=== PATIENT | female | born 1975 | race American Indian/Alaskan Native ===

== ENCOUNTER 2020-09-15 20:00 | Inpatient (IN) | payer OTHER ==
--- NOTE | 2020-09-15 20:35 | Emergency Department Report ---
Blank Doc - Documentation Documentation: 44-year-old female that presents with difficulty urinating with fever and chil ls. Tachycardia with fever in triage. 1- This initial assessment/diagnostic orders/clinical plan/ treatment(s) is/are subject to change based on pt's health status, clinical progression and re-asses sment by fellow clinical providers in the ED. Further treatment and workup at subsequent clinical provers discretion. Patient/guardians urged not to elope from ED as their condition may be serious if not clinically assessed and managed. 2-lac 3-UA
[2020-09-15 20:59] LABS: Hematocrit 34.1 % (30.3-42.9); Hemoglobin 10.7 gm/dl (10.1-14.3); Mean Corpuscular HGB Conc 32 % (30-34); Mean Corpuscular Volume 76 fl (79-97); Platelet Count 590 K/mm3 (140-440); Red Cell Distribution Width 19.1 % (13.2-15.2)
[2020-09-15] MEDS ORDERED: ACETAMINOPHEN 325 MG TAB PO ONE (21:08)
--- NOTE | 2020-09-15 21:12 | Emergency Department Report ---
HPI - General Chief Complaint: Urogenital-Female Time Seen by Provider: 09/15/20 20:32 - HPI HPI: This is a 44-year-old female who presents to the emergency department with the inability to urinate for the past 4 hours, since 5 PM. The patient says that she believes it is secondary to kidney stones. She says that she had multiple kidney stones about 1 year ago and it caused her to have urinary retention at that time. She follows with a urologist in [place], Dr. Angelita Willard, but she has not had any lithotripsy, stents or kidney stone removal. She has a past medical history of asthma, hypertension. The patient took a dose of Aleve yesterday for some mild lower abdominal discomfort. She denies any vaginal bleeding or discharge, dysuria, hematuria. The patient presents with a very low-grade fever but denies feeling feverish. ED Past Medical Hx - Past Medical History Previous Medical History?: Yes Hx Hypertension: Yes Hx Kidney Stones: Yes Hx Asthma: Yes - Surgical History Past Surgical History?: Yes Additional Surgical History: urinary tact blockage - Social History Smoking Status: Never Smoker Substance Use Type: None ED Review of Systems ROS: Stated complaint: UNABLE TO URINATE Other details as noted in HPI Comment: All other systems reviewed and negative Constitutional: fever. denies: chills Eyes: denies: eye pain, vision change ENT: denies: ear pain, throat pain Respiratory: denies: cough, shortness of breath Cardiovascular: denies: chest pain, palpitations Gastrointestinal: abdominal pain. denies: nausea, vomiting Genitourinary: other (urinary retention). denies: dysuria, discharge Musculoskeletal: denies: back pain, arthralgia Skin: denies: rash, lesions Neurological: denies: headache, weakness Physical Exam - Physical Exam Vital Signs: Vital Signs 09/15/20 20:31 Temperature 100.4 F H Pulse Rate 120 H Respiratory 16 Rate Blood Pressure 131/77 O2 Sat by Pulse 99 Oximetry Physical Exam: GENERAL: The patient is well-developed well-nourished. HENT: Normocephalic. Atraumatic. Patient has moist mucous membranes. EYES: Extraocular motions are intact. NECK: Supple. Trachea is midline. CHEST/LUNGS: Clear to auscultation. There is no respiratory distress noted. HEART/CARDIOVASCULAR: Regular. There is mild tachycardia. There is no murmur. ABDOMEN: Abdomen is soft, nontender. Patient has normal bowel sounds. Obese habitus. SKIN: Skin is warm and dry. NEURO: The patient is awake, alert, and oriented. The patient is cooperative. The patient has no focal neurologic deficits. Normal speech. MUSCULOSKELETAL: There is no tenderness or deformity. There is no limitation range of motion. BACK: No CVA tenderness to palpation. ED Course Vital Signs 09/15/20 20:31 Temperature 100.4 F H Pulse Rate 120 H Respiratory 16 Rate Blood Pressure 131/77 O2 Sat by Pulse 99 Oximetry - Reevaluation(s) Reevaluation #1: 09/15/20 22:[address] scan of the abdomen and pelvis shows 2 large stones in the right kidney and the calyces, but there is no ureterolithiasis, hydronephrosis, obvious bladder outlet obstruction or mass. There are some inflammatory changes around the right kidney that could be consistent with pyelonephritis. Waiting for the urinalysis results. A Alejandra catheter was placed but the patient only put out about 50 cc of urine so far. It seems more that the patient has decreased urine output than acute urinary retention. The patient will receive IV antibiotics and IV fluid resuscitation. She will be admitted to the hospital for further evaluation and treatment. - EJ/Peripheral Line Arm R Time Out Performed: Yes Indications: nurses unable to establis Skin Cleansed in Sterile Fashion: Yes Size: 20 Dressing Placed: Tegaderm, tape Patient Tolerated Procedure: well - Pulse Oximetry Interpretation Digit-Finger Initial Pulse Oximetry Readin O2 Sat by Pulse Oximetry: 99 Actions Taken: none ED Medical Decision Making - Lab Data Result diagrams: 09/15/20 20:37 09/15/20 20:37 Lab Results 09/15/20 09/15/20 09/15/20 Range/Units 20:37 20:37 20:37 WBC 29.5 H (4.5-11.0) K/mm3 RBC 4.50 (3.65-5.03) M/mm3 Hgb 10.7 (10.1-14.3) gm/dl Hct 34.1 (30.3-42.9) % MCV 76 L (79-97) fl MCH 24 L (28-32) pg MCHC 32 (30-34) % RDW 19.1 H (13.2-15.2) % Plt Count 590 H (140-440) K/mm3 Add Manual Diff Complete Total Counted 100 Seg Neutrophils % County Attorney Seg Neuts % (Manual) 93.0 H (40.0-70.0) % Lymphocytes % (Manual) 4.0 L (13.4-35.0) % Monocytes % (Manual) 3.0 (0.0-7.3) % Nucleated RBC % Not Reportable Seg Neutrophils # Man 27.4 H (1.8-7.7) K/mm3 Band Neutrophils # 0.0 K/mm3 Lymphocytes # (Manual) 1.2 (1.2-5.4) K/mm3 Abs React Lymphs (Man) 0.0 K/mm3 Monocytes # (Manual) 0.9 H (0.0-0.8) K/mm3 Eosinophils # (Manual) 0.0 (0.0-0.4) K/mm3 Basophils # (Manual) 0.0 (0.0-0.1) K/mm3 Metamyelocytes # 0.0 K/mm3 Myelocytes # 0.0 K/mm3 Promyelocytes # 0.0 K/mm3 Blast Cells # 0.0 K/mm3 WBC Morphology Not Reportable Hypersegmented Neuts Not Reportable Hyposegmented Neuts Not Reportable Hypogranular Neuts Not Reportable Smudge Cells Not Reportable Toxic Granulation Not Reportable Toxic Vacuolation Not Reportable Dohle Bodies Not Reportable Pelger-Huet Anomaly Not Reportable Fany Rods Not Reportable Platelet Estimate Consistent w auto Clumped Platelets Not Reportable Plt Clumps, EDTA Not Reportable Large Platelets Not Reportable Giant Platelets Not Reportable Platelet Satelliting Not Reportable Plt Morphology Comment Not Reportable RBC Morphology Not Reportable Dimorphic RBCs Not Reportable Polychromasia Not Reportable Hypochromasia Rare Poikilocytosis Not Reportable Anisocytosis Not Reportable Microcytosis Not Reportable Macrocytosis Not Reportable Spherocytes Not Reportable Pappenheimer Bodies Not Reportable Sickle Cells Not Reportable Target Cells Not Reportable Tear Drop Cells Not Reportable Ovalocytes Rare Helmet Cells Not Reportable Yap-Ravena Bodies Not Reportable Constantine Rings Not Reportable Muldrow Cells Not Reportable Bite Cells Not Reportable Crenated Cell Not Reportable Elliptocytes Not Reportable Acanthocytes (Spur) Not Reportable Rouleaux Not Reportable Hemoglobin C Crystals Not Reportable Schistocytes Not Reportable Malaria parasites Not Reportable Eitan Bodies Not Reportable Hem Pathologist Commnt No Sodium 136 L (137-145) mmol/L Potassium 3.3 L (3.6-5.0) mmol/L Chloride 100.3 (98-107) mmol/L Carbon Dioxide 25 (22-30) mmol/L Anion Gap 14 mmol/L BUN 10 (7-17) mg/dL Creatinine 1.2 (0.6-1.2) mg/dL Estimated GFR 59 ml/min BUN/Creatinine Ratio 8 % Glucose 127 H (65-100) mg/dL Lactic Acid 1.30 (0.7-2.0) mmol/L Calcium 9.0 (8.4-10.2) mg/dL Total Bilirubin 0.60 (0.1-1.2) mg/dL AST 12 (5-40) units/L ALT 8 (7-56) units/L Alkaline Phosphatase 71 (35-129) units/L Total Protein 7.6 (6.3-8.2) g/dL Albumin 3.2 L (3.9-5) g/dL Albumin/Globulin Ratio 0.7 % HCG, Qual (Negative) Urine Color (Yellow) Urine Turbidity (Clear) Urine pH (5.0-7.0) Ur Specific [place] (1.003-1.030) Urine Protein (Negative) mg/dL Urine Glucose (UA) (Negative) mg/dL Urine Ketones (Negative) mg/dL Urine Blood (Negative) Urine Nitrite (Negative) Urine Bilirubin (Negative) Urine Urobilinogen (<2.0) mg/dL Ur Leukocyte Esterase (Negative) Urine WBC (Auto) (0.0-6.0) /HPF Urine RBC (Auto) (0.0-6.0) /HPF U Epithel Cells (Auto) (0-13.0) /HPF Urine Bacteria (Auto) (Negative) /HPF Urine WBC Clumps /HPF Urine Mucus /HPF 09/15/20 09/15/20 Range/Units 20:37 22:00 WBC (4.5-11.0) K/mm3 RBC (3.65-5.03) M/mm3 Hgb (10.1-14.3) gm/dl Hct (30.3-42.9) % MCV (79-97) fl MCH (28-32) pg MCHC (30-34) % RDW (13.2-15.2) % Plt Count (140-440) K/mm3 Add Manual Diff Total Counted Seg Neutrophils % Seg Neuts % (Manual) (40.0-70.0) % Lymphocytes % (Manual) (13.4-35.0) % Monocytes % (Manual) (0.0-7.3) % Nucleated RBC % Seg Neutrophils # Man (1.8-7.7) K/mm3 Band Neutrophils # K/mm3 Lymphocytes # (Manual) (1.2-5.4) K/mm3 Abs React Lymphs (Man) K/mm3 Monocytes # (Manual) (0.0-0.8) K/mm3 Eosinophils # (Manual) (0.0-0.4) K/mm3 Basophils # (Manual) (0.0-0.1) K/mm3 Metamyelocytes # K/mm3 Myelocytes # K/mm3 Promyelocytes # K/mm3 Blast Cells # K/mm3 WBC Morphology Hypersegmented Neuts Hyposegmented Neuts Hypogranular Neuts Smudge Cells Toxic Granulation Toxic Vacuolation Dohle Bodies Pelger-Huet Anomaly Fany Rods Platelet Estimate Clumped Platelets Plt Clumps, EDTA Large Platelets Giant Platelets Platelet Satelliting Plt Morphology Comment RBC Morphology Dimorphic RBCs Polychromasia Hypochromasia Poikilocytosis Anisocytosis Microcytosis Macrocytosis Spherocytes Pappenheimer Bodies Sickle Cells Target Cells Tear Drop Cells Ovalocytes Helmet Cells Yap-Ravena Bodies Constantine Rings Mohan Cells Bite Cells Crenated Cell Elliptocytes Acanthocytes (Spur) Rouleaux Hemoglobin C Crystals Schistocytes Malaria parasites Eitan Bodies Hem Pathologist Commnt Sodium (137-145) mmol/L Potassium (3.6-5.0) mmol/L Chloride (98-107) mmol/L Carbon Dioxide (22-30) mmol/L Anion Gap mmol/L BUN (7-17) mg/dL Creatinine (0.6-1.2) mg/dL Estimated GFR ml/min BUN/Creatinine Ratio % Glucose (65-100) mg/dL Lactic Acid (0.7-2.0) mmol/L Calcium (8.4-10.2) mg/dL Total Bilirubin (0.1-1.2) mg/dL AST (5-40) units/L ALT (7-56) units/L Alkaline Phosphatase (35-129) units/L Total Protein (6.3-8.2) g/dL Albumin (3.9-5) g/dL Albumin/Globulin Ratio % HCG, Qual Negative (Negative) Urine Color Yellow (Yellow) Urine Turbidity Cloudy (Clear) Urine pH 5.0 (5.0-7.0) Ur Specific [place] 1.015 (1.003-1.030) Urine Protein 100 mg/dl (Negative) mg/dL Urine Glucose (UA) Neg (Negative) mg/dL Urine Ketones Tr (Negative) mg/dL Urine Blood Sm (Negative) Urine Nitrite Pos (Negative) Urine Bilirubin Neg (Negative) Urine Urobilinogen < 2.0 (<2.0) mg/dL Ur Leukocyte Esterase Lg (Negative) Urine WBC (Auto) > 182.0 H (0.0-6.0) /HPF Urine RBC (Auto) 21.0 (0.0-6.0) /HPF U Epithel Cells (Auto) 1.0 (0-13.0) /HPF Urine Bacteria (Auto) 2+ (Negative) /HPF Urine WBC Clumps 3+ /HPF Urine Mucus 1+ /HPF - Radiology Data Radiology results: report reviewed CT ABDOMEN AND PELVIS WITHOUT CONTRAST INDICATION / CLINICAL INFORMATION: Abd pain, Urinary retention, hx of kidney stones. TECHNIQUE: Axial CT images were obtained through the abdomen and pelvis without IV contrast. All CT scans at this location are performed using CT dose reduction for ALARA by means of automated exposure control. COMPARISON: None available. FINDINGS: LOWER CHEST: No significant abnormality. LIVER: No significant abnormality. GALLBLADDER: No significant abnormality. PANCREAS: No significant abnormality. SPLEEN: No significant abnormality. ADRENALS: No significant abnormality. KIDNEYS / URETERS: There are 2 right-sided calyceal stones measuring 1.5 and 1.3 cm. No definite right ureteral stone is identified. There is no definite obstructive uropathy. However, there is some right-sided perinephric fat stranding which is nonspecific. The left kidney appears somewhat atrophic. There is scarring within the lower pole of the left kidney with calcifications noted. There is prominence of the upper pole calyces without evidence of obstructive uropathy. No ureteral stone is identified. URINARY BLADDER: No significant abnormality. REPRODUCTIVE ORGANS: No significant abnormality. STOMACH / SMALL BOWEL: No significant abnormality. COLON: No significant abnormality. The cecum is located near the midline. APPENDIX: No significant abnormality. PERITONEUM: No free fluid. No free air. No fluid collection. LYMPH NODES: No significant adenopathy. AORTA / ARTERIES: No significant abnormality. IVC / VEINS: No significant abnormality. SKELETAL SYSTEM: No significant abnormality. ADDITIONAL FINDINGS: None. IMPRESSION: 1. There are two sizable right-sided calyceal stones without ureterolithiasis or definite obstructive uropathy. There is mild to moderate right-sided perinephric fat stranding which is nonspecific but could represent pyelonephritis in the right clinical setting. Correlation with urinalysis is recommended. 2. The left kidney appears somewhat atrophic with inferior pole scarring and calcification. No left-sided ureterolithiasis. - Medical Decision Making This patient presents to the emergency department with the initial complaint of urinary retention as she says she has not urinated for the past 4 hours prior to presentation. However the patient denies having any current abdominal or suprapubic pressure or discomfort. On examination the patient does not have any CVA tenderness to palpation. She does meet sepsis criteria with her vital signs that shows a low-grade fever of 100.4 F and moderate tachycardia. The patient's labs shows a leukocytosis of almost 30,000. There is mild hypokalemia that was placed with potassium chloride. No significant renal insufficiency. The patient went and had a CT scan of the abdomen and pelvis prior to having a catheter placed. The CT scan of the abdomen pelvis did not show any bladder distention or abnormalities, or signs of urinary retention. There are 2 large calculi found in the right renal calyces but there is no obstructive uropathy or any ureterolithiasis seen. No hydronephrosis. There is some inflammatory changes around the right kidney that could be consistent with pyelonephritis. The Alejandra catheter was placed but the patient only put out about 75 cc of urine which is more consistent with decreased urine output than any type of urinary retention. The urine was sent and the patient has a significant urinary tract infection. Altogether this appears consistent with sepsis secondary to pyelonephritis and UTI. The patient has been given IV antibiotics after cultures have been sent. She has been given IV fluid resuscitation. She was given some Tylenol for her low- grade fever. The patient will be admitted to the hospital for further evaluation and treatment and was accepted for admission by the hospitalist, Dr. Serrano. Critical Care Time: Yes Critical care time in (mins) excluding proc time.: 35 Critical care attestation.: If time is entered above; I have spent that time in minutes in the direct care of this critically ill patient, excluding procedure time. Critical care time was spent on this patient in doing her initial evaluation, multiple reevaluations, ordering and interpretation of labs and imaging, antipyretics and IV fluid resuscitation and treating her fever and sepsis, IV antibiotics, multiple discussions with the patient. Critical Care Time: 35 minutes ED Disposition Clinical Impression: Pyelonephritis Sepsis Qualifiers: Sepsis type: sepsis due to unspecified organism Sepsis acute organ dysfunction status: unspecified Qualified Code(s): A41.9 - Sepsis, unspecified organism UTI (urinary tract infection) Qualifiers: Urinary tract infection type: acute cystitis Hematuria presence: without hematuria Qualified Code(s): N30.00 - Acute cystitis without hematuria Leukocytosis Qualifiers: Leukocytosis type: unspecified Qualified Code(s): D72.829 - Elevated white blood cell count, unspecified Disposition: 09 OP ADMIT IP TO THIS HOSP Is pt being admited?: Yes Condition: Serious Time of Disposition: 22:46
[2020-09-15 21:18] LABS: Albumin 3.2 g/dL (3.9-5)
[2020-09-15] MEDS ORDERED: POTASSIUM CHLORIDE ER 20 MEQ TAB PO ONE (21:22)
[2020-09-15 22:09] LABS: Total Cells Counted 100
--- NOTE | 2020-09-15 22:10 | Cat Scan Report ---
CT ABDOMEN AND PELVIS WITHOUT CONTRAST INDICATION / CLINICAL INFORMATION: Abd pain, Urinary retention, hx of kidney stones. TECHNIQUE: Axial CT images were obtained through the abdomen and pelvis without IV contrast. All CT scans at [facility] location are performed using CT dose reduction for ALARA by means of automated exposure control. COMPARISON: None available. FINDINGS: LOWER CHEST: No significant abnormality. LIVER: No significant abnormality. GALLBLADDER: No significant abnormality. PANCREAS: No significant abnormality. SPLEEN: No significant abnormality. ADRENALS: No significant abnormality. KIDNEYS / URETERS: There are 2 right-sided calyceal stones measuring 1.5 and 1.3 cm. No definite righ t ureteral stone is identified. There is no definite obstructive uropathy. However, there is some rig ht-sided perinephric fat stranding which is nonspecific. The left kidney appears somewhat atrophic. T here is scarring within the lower pole of the left kidney with calcifications noted. There is promine nce of the upper pole calyces without evidence of obstructive uropathy. No ureteral stone is identifi ed. URINARY BLADDER: No significant abnormality. REPRODUCTIVE ORGANS: No significant abnormality. STOMACH / SMALL BOWEL: No significant abnormality. COLON: No significant abnormality. The cecum is located near the midline. APPENDIX: No significant abnormality. PERITONEUM: No free fluid. No free air. No fluid collection. LYMPH NODES: No significant adenopathy. AORTA / ARTERIES: No significant abnormality. IVC / VEINS: No significant abnormality. SKELETAL SYSTEM: No significant abnormality. ADDITIONAL FINDINGS: None. IMPRESSION: 1. There are two sizable right-sided calyceal stones without ureterolithiasis or definite obstructive uropathy. There is mild to moderate right-sided perinephric fat stranding which is nonspecific but c ould represent pyelonephritis in the right clinical setting. Correlation with urinalysis is recommend ed. 2. The left kidney appears somewhat atrophic with inferior pole scarring and calcification. No left-s ided ureterolithiasis. Signer Name: Fer Padgett MD Signed: 09/15/2020 10:06 PM Workstation Name: [id number]
[2020-09-15 22:11] LABS: Hypochromasia Rare; Ovalocytes Rare; Platelet Estimate Consistent w Auto
[2020-09-15] MEDS ORDERED: SODIUM CHLORIDE 0.9% 1000 ML 1,000 ML IV ONE (22:14)
[2020-09-15 22:18] LABS: Bacteria,Urine 2+ /HPF (Negative); Bilirubin,Urine NEG (Negative); Blood,Urine SM (Negative); Color,Urine Yellow (Yellow); Mucus,Urine 1+ /HPF; Urobilinogen,Urine < 2.0 mg/dL (<2.0)
[2020-09-15 22:19] LABS: WBC,Urine > 182.0 /HPF (0.0-6.0)
[2020-09-15] MEDS ORDERED: cefTRIAXone/NS 1 GM/50 ML 1 GM/50 ML BAG IV ONE (22:45)
[2020-09-15] MEDS ORDERED: ONDANSETRON 4 MG/2 ML INJ IV PRN (23:21)
[2020-09-15] MEDS ORDERED: ACETAMINOPHEN 325 MG TAB PO PRN (23:21)
[2020-09-15] MEDS ORDERED: MORPHINE 2 MG/1 ML INJ IV PRN (23:21)
[2020-09-15] MEDS ORDERED: MAGNESIUM HYDROXIDE (MOM) ORAL LIQD UDC PO PRN (23:21)
--- NOTE | 2020-09-15 23:29 | History and Physical Report ---
History of Present Illness Date of examination: 09/15/20 Date of admission: 09/15/20 22:47 Chief complaint: Abdominal Pain History of present illness: 44-year-old -[place] female with significant past medical history of hypertension , asthma and kidney stones presenting to the emergency room today complaining of inability to urinate over the past few hours. Patient has denied any fever or chills, no chest pain or shortness of breath, no nausea vomiting, no hematuria or dysuria. Patient follows up with the urologist in [place]-Dr. Angelita Willard. Upon arrival in the emergency room today she had a low-grade fever. Work-up reveals UTI and CT of the abdomen and pelvis reveals pyelonephritis. Patient has been commenced on empiric IV antibiotics. Past History Past Medical History: hypertension, other (Asthma, Kidney Stones) Past Surgical History: Other (Urinary tract Blockage.) Social history: no significant social history Family history: no significant family history Medications and Allergies Allergies Allergy/AdvReac Type Severity Reaction Status Date / Time Sulfa (Sulfonamide Allergy Itching Verified 09/15/20 20:29 Antibiotics) Home Medications Medication Instructions Recorded Confirmed Last Taken Type Albuterol Mdi (or & Nicu Only) 8.5 g INHALATION DAILY PRN 09/16/20 09/16/20 Unknown History [ProAir HFA Inhaler] Amlodipine Besylate/Valsartan 1 tab PO DAILY 09/16/20 09/16/20 09/15/20 History [Amlodipine-Valsartan 10-320 mg] Active Meds: Active Medications Acetaminophen (Acetaminophen 325 Mg Tab) 650 mg PO Q4H PRN PRN Reason: Pain MILD(1-3)/Fever >100.5/AMEZCUA Heparin Sodium (Porcine) (Heparin 5,000 Unit/1 Ml Vial) 5,000 unit SUB-Q Q8HR ABHILASH Ceftriaxone Sodium (Rocephin/Ns 1 Gm/50 Ml) 1 gm in 50 mls @ 100 mls/hr IV Q24H ABHILASH; Protocol Magnesium Hydroxide (Magnesium Hydroxide (Mom) Oral Liqd Udc) 30 ml PO Q4H PRN PRN Reason: Constipation Morphine Sulfate (Morphine 2 Mg/1 Ml Inj) 2 mg IV Q4H PRN PRN Reason: Pain, Moderate (4-6) Ondansetron HCl (Ondansetron 4 Mg/2 Ml Inj) 4 mg IV Q8H PRN PRN Reason: Nausea And Vomiting Sodium Chloride (Sodium Chloride 0.9% 10 Ml Flush Syringe) 10 ml IV BID ABHILASH Sodium Chloride (Sodium Chloride 0.9% 10 Ml Flush Syringe) 10 ml IV PRN PRN PRN Reason: LINE FLUSH Review of Systems Constitutional: fever, no chills, no fatigue Ears, nose, mouth and throat: no nasal congestion, no sore throat Cardiovascular: no chest pain, no palpitations Respiratory: no cough, no shortness of breath Gastrointestinal: abdominal pain, no nausea, no vomiting, no diarrhea Genitourinary Female: no pelvic pain, no flank pain, no dysuria, no hematuria Musculoskeletal: no neck pain, no low back pain Integumentary: no rash, no pruritis Neurological: no headaches, no confusion Psychiatric: no anxiety, no depression Exam - Constitutional Vitals: Temp Pulse Resp BP Pulse Ox 98.2 F 100 H 31 H 108/57 99 09/15/20 23:00 09/15/20 23:00 09/15/20 23:00 09/15/20 23:00 09/15/20 23:17 General appearance: Present: no acute distress, well-nourished, obese - EENT Eyes: Present: PERRL, EOM intact. Absent: scleral icterus ENT: hearing intact, clear oral mucosa, dentition normal - Neck Neck: Present: supple, normal ROM - Respiratory Respiratory effort: normal Respiratory: bilateral: CTA - Cardiovascular Rhythm: regular Heart Sounds: Present: S1 & S2. Absent: gallop, systolic murmur, diastolic murmur, rub, click - Extremities Extremities: no ischemia, pulses intact, pulses symmetrical, No edema, normal temperature, normal color, Full ROM Peripheral Pulses: within normal limits - Abdominal General gastrointestinal: Present: soft, non-tender, non-distended, normal bowel sounds. Absent: mass - Integumentary Integumentary: Present: clear, warm, dry. Absent: rash - Musculoskeletal Musculoskeletal: strength equal bilaterally - Psychiatric Psychiatric: appropriate mood/affect, intact judgment & insight, memory intact, cooperative - Neurologic Neurologic: CNII-XII intact, no focal deficits, moves all extremities Results - Labs CBC & Chem 7: 09/15/20 20:37 09/15/20 20:37 Labs: Abnormal lab results 09/15/20 09/15/20 09/15/20 Range/Units 20:37 20:37 22:00 WBC 29.5 H (4.5-11.0) K/mm3 MCV 76 L (79-97) fl MCH 24 L (28-32) pg RDW 19.1 H (13.2-15.2) % Plt Count 590 H (140-440) K/mm3 Seg Neuts % (Manual) 93.0 H (40.0-70.0) % Lymphocytes % (Manual) 4.0 L (13.4-35.0) % Seg Neutrophils # Man 27.4 H (1.8-7.7) K/mm3 Monocytes # (Manual) 0.9 H (0.0-0.8) K/mm3 Sodium 136 L (137-145) mmol/L Potassium 3.3 L (3.6-5.0) mmol/L Glucose 127 H (65-100) mg/dL Albumin 3.2 L (3.9-5) g/dL Urine WBC (Auto) > 182.0 H (0.0-6.0) /HPF Assessment and Plan - Patient Problems (1) Pyelonephritis Current Visit: Yes Status: Acute Plan to address problem: Patient placed on empiric IV antibiotics. We will await culture results. (2) Leukocytosis Current Visit: Yes Status: Acute Qualifiers: Leukocytosis type: unspecified (3) Sepsis Current Visit: Yes Status: Acute Qualifiers: Sepsis type: sepsis due to unspecified organism Sepsis acute organ dysfunction status: unspecified Qualified Code(s): A41.9 - Sepsis, unspecified organism Plan to address problem: We will continue patient on IV fluid and IV antibiotics. (4) DVT prophylaxis Current Visit: Yes Status: Acute Plan to address problem: Patient placed on subcutaneous heparin. (5) Full code status Current Visit: Yes Status: Acute Plan to address problem: Patient is full code.
[2020-09-16 05:11] LABS: Hematocrit 29.4 % (30.3-42.9); Hemoglobin 9.3 gm/dl (10.1-14.3); Mean Corpuscular HGB Conc 32 % (30-34); Mean Corpuscular Volume 75 fl (79-97); Platelet Count 486 K/mm3 (140-440); Red Blood Count 3.89 M/mm3 (3.65-5.03); Red Cell Distribution Width 18.7 % (13.2-15.2)
[2020-09-16 05:14] LABS: Basophils % (Auto) 0.1 % (0.0-1.8); Lymphocytes # (Auto) 1.1 K/mm3 (1.2-5.4); Lymphocytes % (Auto) 4.1 % (13.4-35.0); Monocytes # (Auto) 1.6 K/mm3 (0.0-0.8); Monocytes % (Auto) 5.9 % (0.0-7.3)
[2020-09-16 05:23] LABS: INR 1.52 (0.87-1.13)
[2020-09-16 05:28] LABS: Calcium 8.5 mg/dL (8.4-10.2)
[2020-09-16] MEDS: HEPARIN 5,000 UNIT/1 ML VIAL SUB-Q SCH ×3 (06:59→22:45)
[2020-09-16] MEDS: SODIUM CHLORIDE 0.9% 1000 ML 1,000 ML IV SCH (07:00)
--- NOTE | 2020-09-16 08:57 | Progress Note ---
Assessment and Plan Assessment and plan: 44-year-old -[place] female with significant past medical history of hypertension , asthma and kidney stones presenting to the emergency room today complaining of inability to urinate over the past few hours. Patient has denied any fever or chills, no chest pain or shortness of breath, no nausea vomiting, no hematuria or dysuria. Patient follows up with the urologist in [place]-Dr. Angelita Willard. Upon arrival in the emergency room today she had a low-grade fever. Work-up reveals UTI and CT of the abdomen and pelvis reveals pyelonephritis. Patient has been commenced on empiric IV antibiotics. Hospital course 3/2. On IV antibiotics for pyelonephritis with sepsis. Denies any pain in the abdomen or the back. Complains of not been able to urinate. Vitals remained stable overnight. T-max 100 Fahrenheit. Problems #Sepsis secondary to pyelonephritis Continue IV antibiotics Culture results-blood and urine pending Continue IV hydration #HANS 2/2 vasomotor nephropathy. Has decreased urinary output Labs stable Bladder scan revealed no urinary retention Continue IV hydration and monitor #History of kidney stones CT showed no obstructing kidney stones Urology in the office advised #Morbid obesity Diet and exercise #DVT prophylaxis-Heparin Full code History Interval history: 3/2. On IV antibiotics for pyelonephritis with sepsis. Denies any pain in the abdomen or the back. Complains of not been able to urinate. Vitals remained stable overnight. T-max 100 Fahrenheit Hospitalist Physical - Physical exam Narrative exam: VITAL SIGNS: Reviewed. GENERAL: Awake HEAD: No signs of head trauma. EYES: Pupils are equal. Extraocular motions intact. MOUTH: Oropharynx is normal. NECK: No adenopathy, no JVD. CHEST: Chest with diminished breath sounds bilaterally. No wheezes, rales, or rhonchi. CARDIAC: normal S1 and S2, without murmurs, gallops, or rubs. ABDOMEN: Soft, non tender and non distended. No rebound or guarding, and no masses palpated. Bowel Sounds normal. MUSCULOSKELETAL: No edema NEUROLOGIC EXAM: Alert and oriented x3. No focal neurologic deficits SKIN: No obvious lesions - Constitutional Vitals: Temp Pulse Resp BP Pulse Ox 98.0 F 98 H 18 113/68 98 09/16/20 08:51 09/16/20 08:51 09/16/20 08:51 09/16/20 08:51 09/16/20 08:51 Results - Labs CBC & Chem 7: 09/17/20 04:55 09/17/20 04:55 Labs: Laboratory Last Values WBC 26.6 K/mm3 (4.5-11.0) H 09/16/20 03:34 RBC 3.89 M/mm3 (3.65-5.03) 09/16/20 03:34 Hgb 9.3 gm/dl (10.1-14.3) L 09/16/20 03:34 Hct 29.4 % (30.3-42.9) L 09/16/20 03:34 MCV 75 fl (79-97) L 09/16/20 03:34 MCH 24 pg (28-32) L 09/16/20 03:34 MCHC 32 % (30-34) 09/16/20 03:34 RDW 18.7 % (13.2-15.2) H 09/16/20 03:34 Plt Count 486 K/mm3 (140-440) H 09/16/20 03:34 Lymph % (Auto) 4.1 % (13.4-35.0) L 09/16/20 03:34 [place] % (Auto) 5.9 % (0.0-7.3) 09/16/20 03:34 Eos % (Auto) 0.0 % (0.0-4.3) 09/16/20 03:34 Baso % (Auto) 0.1 % (0.0-1.8) 09/16/20 03:34 Lymph # (Auto) 1.1 K/mm3 (1.2-5.4) L 09/16/20 03:34 [place] # (Auto) 1.6 K/mm3 (0.0-0.8) H 09/16/20 03:34 Eos # (Auto) 0.0 K/mm3 (0.0-0.4) 09/16/20 03:34 Baso # (Auto) 0.0 K/mm3 (0.0-0.1) 09/16/20 03:34 Add Manual Diff Complete 09/15/20 20:37 Total Counted 100 09/15/20 20:37 Seg Neutrophils % 89.9 % (40.0-70.0) H 09/16/20 03:34 Seg Neuts % (Manual) 93.0 % (40.0-70.0) H 09/15/20 20:37 Lymphocytes % (Manual) 4.0 % (13.4-35.0) L 09/15/20 20:37 Monocytes % (Manual) 3.0 % (0.0-7.3) 09/15/20 20:37 Nucleated RBC % Not Reportable 09/15/20 20:37 Seg Neutrophils # 23.9 K/mm3 (1.8-7.7) H 09/16/20 03:34 Seg Neutrophils # Man 27.4 K/mm3 (1.8-7.7) H 09/15/20 20:37 Band Neutrophils # 0.0 K/mm3 09/15/20 20:37 Lymphocytes # (Manual) 1.2 K/mm3 (1.2-5.4) 09/15/20 20:37 Abs React Lymphs (Man) 0.0 K/mm3 09/15/20 20:37 Monocytes # (Manual) 0.9 K/mm3 (0.0-0.8) H 09/15/20 20:37 Eosinophils # (Manual) 0.0 K/mm3 (0.0-0.4) 09/15/20 20:37 Basophils # (Manual) 0.0 K/mm3 (0.0-0.1) 09/15/20 20:37 Metamyelocytes # 0.0 K/mm3 09/15/20 20:37 Myelocytes # 0.0 K/mm3 09/15/20 20:37 Promyelocytes # 0.0 K/mm3 09/15/20 20:37 Blast Cells # 0.0 K/mm3 09/15/20 20:37 WBC Morphology Not Reportable 09/15/20 20:37 Hypersegmented Neuts Not Reportable 09/15/20 20:37 Hyposegmented Neuts Not Reportable 09/15/20 20:37 Hypogranular Neuts Not Reportable 09/15/20 20:37 Smudge Cells Not Reportable 09/15/20 20:37 Toxic Granulation Not Reportable 09/15/20 20:37 Toxic Vacuolation Not Reportable 09/15/20 20:37 Dohle Bodies Not Reportable 09/15/20 20:37 Pelger-Huet Anomaly Not Reportable 09/15/20 20:37 Fany Rods Not Reportable 09/15/20 20:37 Platelet Estimate Consistent w auto 09/15/20 20:37 Clumped Platelets Not Reportable 09/15/20 20:37 Plt Clumps, EDTA Not Reportable 09/15/20 20:37 Large Platelets Not Reportable 09/15/20 20:37 Giant Platelets Not Reportable 09/15/20 20:37 Platelet Satelliting Not Reportable 09/15/20 20:37 Plt Morphology Comment Not Reportable 09/15/20 20:37 RBC Morphology Not Reportable 09/15/20 20:37 Dimorphic RBCs Not Reportable 09/15/20 20:37 Polychromasia Not Reportable 09/15/20 20:37 Hypochromasia Rare 09/15/20 20:37 Poikilocytosis Not Reportable 09/15/20 20:37 Anisocytosis Not Reportable 09/15/20 20:37 Microcytosis Not Reportable 09/15/20 20:37 Macrocytosis Not Reportable 09/15/20 20:37 Spherocytes Not Reportable 09/15/20 20:37 Pappenheimer Bodies Not Reportable 09/15/20 20:37 Sickle Cells Not Reportable 09/15/20 20:37 Target Cells Not Reportable 09/15/20 20:37 Tear Drop Cells Not Reportable 09/15/20 20:37 Ovalocytes Rare 09/15/20 20:37 Helmet Cells Not Reportable 09/15/20 20:37 [place] Bodies Not Reportable 09/15/20 20:37 [place] Rings Not Reportable 09/15/20 20:37 [place] Cells Not Reportable 09/15/20 20:37 Bite Cells Not Reportable 09/15/20 20:37 Crenated Cell Not Reportable 09/15/20 20:37 Elliptocytes Not Reportable 09/15/20 20:37 Acanthocytes (Spur) Not Reportable 09/15/20 20:37 Rouleaux Not Reportable 09/15/20 20:37 Hemoglobin C Crystals Not Reportable 09/15/20 20:37 Schistocytes Not Reportable 09/15/20 20:37 Malaria parasites Not Reportable 09/15/20 20:37 Eitan Bodies Not Reportable 09/15/20 20:37 Hem Pathologist Commnt No 09/15/20 20:37 PT 18.3 Sec. (12.2-14.9) H 09/16/20 03:34 INR 1.52 (0.87-1.13) H 09/16/20 03:34 Sodium 136 mmol/L (137-145) L 09/16/20 03:34 Potassium 3.0 mmol/L (3.6-5.0) L 09/16/20 03:34 Chloride 101.4 mmol/L (98-107) 09/16/20 03:34 Carbon Dioxide 25 mmol/L (22-30) 09/16/20 03:34 Anion Gap 13 mmol/L 09/16/20 03:34 BUN 14 mg/dL (7-17) 09/16/20 03:34 Creatinine 1.5 mg/dL (0.6-1.2) H 09/16/20 03:34 Estimated GFR 45 ml/min 09/16/20 03:34 BUN/Creatinine Ratio 9 % 09/16/20 03:34 Glucose 161 mg/dL (65-100) H 09/16/20 03:34 Lactic Acid 1.30 mmol/L (0.7-2.0) 09/15/20 20:37 Calcium 8.5 mg/dL (8.4-10.2) 09/16/20 03:34 Total Bilirubin 0.60 mg/dL (0.1-1.2) 09/15/20 20:37 AST 12 units/L (5-40) 09/15/20 20:37 ALT 8 units/L (7-56) 09/15/20 20:37 Alkaline Phosphatase 71 units/L (35-129) 09/15/20 20:37 Total Protein 7.6 g/dL (6.3-8.2) 09/15/20 20:37 Albumin 3.2 g/dL (3.9-5) L 09/15/20 20:37 Albumin/Globulin Ratio 0.7 % 09/15/20 20:37 HCG, Qual Negative (Negative) 09/15/20 20:37 Urine Color Yellow (Yellow) 09/15/20 22:00 Urine Turbidity Cloudy (Clear) 09/15/20 22:00 Urine pH 5.0 (5.0-7.0) 09/15/20 22:00 Ur Specific [place] 1.015 (1.003-1.030) 09/15/20 22:00 Urine Protein 100 mg/dl mg/dL (Negative) 09/15/20 22:00 Urine Glucose (UA) Neg mg/dL (Negative) 09/15/20 22:00 Urine Ketones Tr mg/dL (Negative) 09/15/20 22:00 Urine Blood Sm (Negative) 09/15/20 22:00 Urine Nitrite Pos (Negative) 09/15/20 22:00 Urine Bilirubin Neg (Negative) 09/15/20 22:00 Urine Urobilinogen < 2.0 mg/dL (<2.0) 09/15/20 22:00 Ur Leukocyte Esterase Lg (Negative) 09/15/20 22:00 Urine WBC (Auto) > 182.0 /HPF (0.0-6.0) H 09/15/20 22:00 Urine RBC (Auto) 21.0 /HPF (0.0-6.0) 09/15/20 22:00 U Epithel Cells (Auto) 1.0 /HPF (0-13.0) 09/15/20 22:00 Urine Bacteria (Auto) 2+ /HPF (Negative) 09/15/20 22:00 Urine WBC Clumps 3+ /HPF 09/15/20 22:00 Urine Mucus 1+ /HPF 09/15/20 22:00 Microbiology: Microbiology 09/15/20 20:37 Peripheral/Venous Blood Culture - Preliminary Culture in Progress 09/15/20 20:45 Peripheral/Venous Blood Culture - Preliminary Culture in Progress Alejandra/IV: Voiding Method Indwelling Catheter Active Medications - Current Medications Current Medications: Generic Name Dose Route Start Last Admin Trade Name Freq PRN Reason Stop Dose Admin Acetaminophen 650 mg 09/15/20 23:21 Acetaminophen 325 Mg Tab PO Q4H PRN Pain MILD(1-3)/Fever >100.5/AMEZCUA Heparin Sodium (Porcine) 5,000 unit 09/16/20 06:00 09/16/20 06:59 Heparin 5,000 Unit/1 Ml Vial SUB-Q 5,000 unit Q8HR ABHILASH Administration Ceftriaxone Sodium 1 gm in 50 mls @ 100 mls/hr 09/16/20 10:00 Rocephin/Ns 1 Gm/50 Ml IV Q24H ABHILASH Protocol Sodium Chloride 1,000 mls @ 125 mls/hr 09/16/20 05:30 09/16/20 07:00 Nacl 0.9% 1000 Ml IV 125 mls/hr DIRECT ABHILASH Administration Magnesium Hydroxide 30 ml 09/15/20 23:21 Magnesium Hydroxide (Mom) Oral Liqd Udc PO Q4H PRN Constipation Morphine Sulfate 2 mg 09/15/20 23:21 Morphine 2 Mg/1 Ml Inj IV Q4H PRN Pain, Moderate (4-6) Ondansetron HCl 4 mg 09/15/20 23:21 Ondansetron 4 Mg/2 Ml Inj IV Q8H PRN Nausea And Vomiting Sodium Chloride 10 ml 09/16/20 10:00 Sodium Chloride 0.9% 10 Ml Flush Syringe IV BID ABHILASH Sodium Chloride 10 ml 09/15/20 23:21 Sodium Chloride 0.9% 10 Ml Flush Syringe IV PRN PRN LINE FLUSH
[2020-09-16] MEDS: cefTRIAXone/NS 1 GM/50 ML 1 GM/50 ML BAG IV SCH (11:52)
[2020-09-17] MEDS: SODIUM CHLORIDE 0.9% 1000 ML 1,000 ML IV SCH (00:51)
[2020-09-17 05:25] LABS: Basophils % (Auto) 0.2 % (0.0-1.8); Eosinophils % (Auto) 0.3 % (0.0-4.3); Hematocrit 28.1 % (30.3-42.9); Hemoglobin 9.2 gm/dl (10.1-14.3); Lymphocytes # (Auto) 1.7 K/mm3 (1.2-5.4); Lymphocytes % (Auto) 13.2 % (13.4-35.0); Mean Corpuscular HGB Conc 33 % (30-34); Mean Corpuscular Volume 75 fl (79-97); Monocytes # (Auto) 1.3 K/mm3 (0.0-0.8); Platelet Count 429 K/mm3 (140-440); Red Blood Count 3.76 M/mm3 (3.65-5.03); Red Cell Distribution Width 19.2 % (13.2-15.2)
[2020-09-17 05:42] LABS: Albumin 2.8 g/dL (3.9-5); Calcium 8.2 mg/dL (8.4-10.2)
[2020-09-17] MEDS: HEPARIN 5,000 UNIT/1 ML VIAL SUB-Q SCH ×2 (07:17→22:27)
[2020-09-17] MEDS ORDERED: POTASSIUM CHLORIDE ER 20 MEQ TAB PO ONE ×2 (08:00)
[2020-09-17] MEDS: cefTRIAXone/NS 1 GM/50 ML 1 GM/50 ML BAG IV SCH (09:44)
[2020-09-17] MEDS ORDERED: FLUCONAZOLE 100 MG TAB PO NR (10:00)
[2020-09-17] MEDS ORDERED: FLUCONAZOLE 200 MG TAB PO SCH (10:00)
--- NOTE | 2020-09-17 11:20 | Progress Note ---
Assessment and Plan Assessment and plan: 44-year-old -[place] female with significant past medical history of hypertension , asthma and kidney stones presenting to the emergency room today complaining of inability to urinate over the past few hours. Patient has denied any fever or chills, no chest pain or shortness of breath, no nausea vomiting, no hematuria or dysuria. Patient follows up with the urologist in [place]-Dr. Angelita Willard. Upon arrival in the emergency room today she had a low-grade fever. Work-up reveals UTI and CT of the abdomen and pelvis reveals pyelonephritis. Patient has been commenced on empiric IV antibiotics. Hospital course 3/. On IV antibiotics for pyelonephritis with sepsis. Denies any pain in the abdomen or the back. Complains of not been able to urinate. Vitals remained stable overnight. T-max 100 Fahrenheit. Renal function dropped today- creatinine 1.2 ---> 1.5. Continue IV hydration 10/14. Afebrile overnight. On IV ceftriaxone for pyelonephritis. Blood culture remain negative. Urine culture growing gram-negative rods. Alejandra draining clear urine. Remove Alejandra today. Possible discharge in a.m. if remains afebrile. Renal function back to baseline Problems #Sepsis secondary to pyelonephritis Continue IV antibiotics Urine culture growing gram-negative rods Blood culture remain negative Continue IV hydration #HANS 2/2 vasomotor nephropathy. Resolved. Monitor renal function Okay to remove Alejandra and monitor Continue IV hydration and monitor #History of kidney stones CT showed no obstructing kidney stones Urology in the office advised #Morbid obesity Diet and exercise #DVT prophylaxis-Heparin Full code History Interval history: 09/16. On IV antibiotics for pyelonephritis with sepsis. Denies any pain in the abdomen or the back. Complains of not been able to urinate. Vitals remained stable overnight. T-max 100 Fahrenheit. Renal function dropped today- creatinine 1.2 ---> 1.5. Continue IV hydration 10/14. Afebrile overnight. On IV ceftriaxone for pyelonephritis. Blood culture remain negative. Urine culture growing gram-negative rods. Alejandra draining clear urine. Remove Alejandra today. Possible discharge in a.m. if remains afebrile. Renal function back to baseline Hospitalist Physical - Physical exam Narrative exam: VITAL SIGNS: Reviewed. GENERAL: Awake HEAD: No signs of head trauma. EYES: Pupils are equal. Extraocular motions intact. MOUTH: Oropharynx is normal. NECK: No adenopathy, no JVD. CHEST: Chest with diminished breath sounds bilaterally. No wheezes, rales, or rhonchi. CARDIAC: normal S1 and S2, without murmurs, gallops, or rubs. ABDOMEN: Soft, non tender and non distended. No rebound or guarding, and no masses palpated. Bowel Sounds normal. MUSCULOSKELETAL: No edema NEUROLOGIC EXAM: Alert and oriented x3. No focal neurologic deficits SKIN: No obvious lesions - Constitutional Vitals: Temp Pulse Resp BP Pulse Ox 98.6 F 84 18 110/67 96 09/17/20 04:41 09/17/20 05:19 09/17/20 04:41 09/17/20 04:41 09/17/20 04:41 Results - Labs CBC & Chem 7: 09/17/20 04:55 09/17/20 04:55 Labs: Laboratory Last Values WBC 12.7 K/mm3 (4.5-11.0) H 09/17/20 04:55 RBC 3.76 M/mm3 (3.65-5.03) 09/17/20 04:55 Hgb 9.2 gm/dl (10.1-14.3) L 09/17/20 04:55 Hct 28.1 % (30.3-42.9) L 09/17/20 04:55 MCV 75 fl (79-97) L 09/17/20 04:55 MCH 25 pg (28-32) L 09/17/20 04:55 MCHC 33 % (30-34) 09/17/20 04:55 RDW 19.2 % (13.2-15.2) H 09/17/20 04:55 Plt Count 429 K/mm3 (140-440) 09/17/20 04:55 Lymph % (Auto) 13.2 % (13.4-35.0) L 09/17/20 04:55 [place] % (Auto) 10.0 % (0.0-7.3) H 09/17/20 04:55 Eos % (Auto) 0.3 % (0.0-4.3) 09/17/20 04:55 Baso % (Auto) 0.2 % (0.0-1.8) 09/17/20 04:55 Lymph # (Auto) 1.7 K/mm3 (1.2-5.4) 09/17/20 04:55 [place] # (Auto) 1.3 K/mm3 (0.0-0.8) H 09/17/20 04:55 Eos # (Auto) 0.0 K/mm3 (0.0-0.4) 09/17/20 04:55 Baso # (Auto) 0.0 K/mm3 (0.0-0.1) 09/17/20 04:55 Add Manual Diff Complete 09/15/20 20:37 Total Counted 100 09/15/20 20:37 Seg Neutrophils % 76.3 % (40.0-70.0) H 09/17/20 04:55 Seg Neuts % (Manual) 93.0 % (40.0-70.0) H 09/15/20 20:37 Lymphocytes % (Manual) 4.0 % (13.4-35.0) L 09/15/20 20:37 Monocytes % (Manual) 3.0 % (0.0-7.3) 09/15/20 20:37 Nucleated RBC % Not Reportable 09/15/20 20:37 Seg Neutrophils # 9.7 K/mm3 (1.8-7.7) H 09/17/20 04:55 Seg Neutrophils # Man 27.4 K/mm3 (1.8-7.7) H 09/15/20 20:37 Band Neutrophils # 0.0 K/mm3 09/15/20 20:37 Lymphocytes # (Manual) 1.2 K/mm3 (1.2-5.4) 09/15/20 20:37 Abs React Lymphs (Man) 0.0 K/mm3 09/15/20 20:37 Monocytes # (Manual) 0.9 K/mm3 (0.0-0.8) H 09/15/20 20:37 Eosinophils # (Manual) 0.0 K/mm3 (0.0-0.4) 09/15/20 20:37 Basophils # (Manual) 0.0 K/mm3 (0.0-0.1) 09/15/20 20:37 Metamyelocytes # 0.0 K/mm3 09/15/20 20:37 Myelocytes # 0.0 K/mm3 09/15/20 20:37 Promyelocytes # 0.0 K/mm3 09/15/20 20:37 Blast Cells # 0.0 K/mm3 09/15/20 20:37 WBC Morphology Not Reportable 09/15/20 20:37 Hypersegmented Neuts Not Reportable 09/15/20 20:37 Hyposegmented Neuts Not Reportable 09/15/20 20:37 Hypogranular Neuts Not Reportable 09/15/20 20:37 Smudge Cells Not Reportable 09/15/20 20:37 Toxic Granulation Not Reportable 09/15/20 20:37 Toxic Vacuolation Not Reportable 09/15/20 20:37 Dohle Bodies Not Reportable 09/15/20 20:37 Pel[place]uet Anomaly Not Reportable 09/15/20 20:37 Fany Rods Not Reportable 09/15/20 20:37 Platelet Estimate Consistent w auto 09/15/20 20:37 Clumped Platelets Not Reportable 09/15/20 20:37 Plt Clumps, EDTA Not Reportable 09/15/20 20:37 Large Platelets Not Reportable 09/15/20 20:37 Giant Platelets Not Reportable 09/15/20 20:37 Platelet Satelliting Not Reportable 09/15/20 20:37 Plt Morphology Comment Not Reportable 09/15/20 20:37 RBC Morphology Not Reportable 09/15/20 20:37 Dimorphic RBCs Not Reportable 09/15/20 20:37 Polychromasia Not Reportable 09/15/20 20:37 Hypochromasia Rare 09/15/20 20:37 Poikilocytosis Not Reportable 09/15/20 20:37 Anisocytosis Not Reportable 09/15/20 20:37 Microcytosis Not Reportable 09/15/20 20:37 Macrocytosis Not Reportable 09/15/20 20:37 Spherocytes Not Reportable 09/15/20 20:37 Pappenheimer Bodies Not Reportable 09/15/20 20:37 Sickle Cells Not Reportable 09/15/20 20:37 Target Cells Not Reportable 09/15/20 20:37 Tear Drop Cells Not Reportable 09/15/20 20:37 Ovalocytes Rare 09/15/20 20:37 Helmet Cells Not Reportable 09/15/20 20:37 [place] Bodies Not Reportable 09/15/20 20:37 [place] Rings Not Reportable 09/15/20 20:37 [place] Cells Not Reportable 09/15/20 20:37 Bite Cells Not Reportable 09/15/20 20:37 Crenated Cell Not Reportable 09/15/20 20:37 Elliptocytes Not Reportable 09/15/20 20:37 Acanthocytes (Spur) Not Reportable 09/15/20 20:37 Rouleaux Not Reportable 09/15/20 20:37 Hemoglobin C Crystals Not Reportable 09/15/20 20:37 Schistocytes Not Reportable 09/15/20 20:37 Malaria parasites Not Reportable 09/15/20 20:37 [place] Bodies Not Reportable 09/15/20 20:37 Hem Pathologist Commnt No 09/15/20 20:37 PT 18.3 Sec. (12.2-14.9) H 09/16/20 03:34 INR 1.52 (0.87-1.13) H 09/16/20 03:34 Sodium 140 mmol/L (137-145) 09/17/20 04:55 Potassium 3.2 mmol/L (3.6-5.0) L 09/17/20 04:55 Chloride 107.4 mmol/L (98-107) H 09/17/20 04:55 Carbon Dioxide 24 mmol/L (22-30) 09/17/20 04:55 Anion Gap 12 mmol/L 09/17/20 04:55 BUN 11 mg/dL (7-17) 09/17/20 04:55 Creatinine 1.2 mg/dL (0.6-1.2) 09/17/20 04:55 Estimated GFR 59 ml/min 09/17/20 04:55 BUN/Creatinine Ratio 9 % 09/17/20 04:55 Glucose 114 mg/dL (65-100) H 09/17/20 04:55 Lactic Acid 1.30 mmol/L (0.7-2.0) 09/15/20 20:37 Calcium 8.2 mg/dL (8.4-10.2) L 09/17/20 04:55 Total Bilirubin 0.20 mg/dL (0.1-1.2) 09/17/20 04:55 AST 10 units/L (5-40) 09/17/20 04:55 ALT 7 units/L (7-56) 09/17/20 04:55 Alkaline Phosphatase 65 units/L (35-129) 09/17/20 04:55 Total Protein 6.8 g/dL (6.3-8.2) 09/17/20 04:55 Albumin 2.8 g/dL (3.9-5) L 09/17/20 04:55 Albumin/Globulin Ratio 0.7 % 09/17/20 04:55 HCG, Qual Negative (Negative) 09/15/20 20:37 Urine Color Yellow (Yellow) 09/15/20 22:00 Urine Turbidity Cloudy (Clear) 09/15/20 22:00 Urine pH 5.0 (5.0-7.0) 09/15/20 22:00 Ur Specific [place] 1.015 (1.003-1.030) 09/15/20 22:00 Urine Protein 100 mg/dl mg/dL (Negative) 09/15/20 22:00 Urine Glucose (UA) Neg mg/dL (Negative) 09/15/20 22:00 Urine Ketones Tr mg/dL (Negative) 09/15/20 22:00 Urine Blood Sm (Negative) 09/15/20 22:00 Urine Nitrite Pos (Negative) 09/15/20 22:00 Urine Bilirubin Neg (Negative) 09/15/20 22:00 Urine Urobilinogen < 2.0 mg/dL (<2.0) 09/15/20 22:00 Ur Leukocyte Esterase Lg (Negative) 09/15/20 22:00 Urine WBC (Auto) > 182.0 /HPF (0.0-6.0) H 09/15/20 22:00 Urine RBC (Auto) 21.0 /HPF (0.0-6.0) 09/15/20 22:00 U Epithel Cells (Auto) 1.0 /HPF (0-13.0) 09/15/20 22:00 Urine Bacteria (Auto) 2+ /HPF (Negative) 09/15/20 22:00 Urine WBC Clumps 3+ /HPF 09/15/20 22:00 Urine Mucus 1+ /HPF 09/15/20 22:00 Microbiology: Microbiology 09/15/20 22:00 Urine,Catheterized - Indwelling Catheter Urine Culture - Preliminary Gram Negative Robbie 09/15/20 20:37 Peripheral/Venous Blood Culture - Preliminary NO GROWTH AFTER 24 HOURS 09/15/20 20:45 Peripheral/Venous Blood Culture - Preliminary NO GROWTH AFTER 24 HOURS Alejandra/IV: Voiding Method Indwelling Catheter Active Medications - Current Medications Current Medications: Generic Name Dose Route Start Last Admin Trade Name Freq PRN Reason Stop Dose Admin Acetaminophen 650 mg 09/15/20 23:21 Acetaminophen 325 Mg Tab PO Q4H PRN Pain MILD(1-3)/Fever >100.5/AMEZCUA Heparin Sodium (Porcine) 5,000 unit 09/16/20 06:00 09/17/20 07:17 Heparin 5,000 Unit/1 Ml Vial SUB-Q 5,000 unit Q8HR ABHILASH Administration Ceftriaxone Sodium 1 gm in 50 mls @ 100 mls/hr 09/16/20 10:00 09/17/20 09:44 Rocephin/Ns 1 Gm/50 Ml IV 100 mls/hr Q24H ABHILASH Administration Protocol Sodium Chloride 1,000 mls @ 125 mls/hr 09/16/20 05:30 09/17/20 00:51 Nacl 0.9% 1000 Ml IV 125 mls/hr DIRECT ABHILASH Administration Magnesium Hydroxide 30 ml 09/15/20 23:21 Magnesium Hydroxide (Mom) Oral Liqd Udc PO Q4H PRN Constipation Morphine Sulfate 2 mg 09/15/20 23:21 Morphine 2 Mg/1 Ml Inj IV Q4H PRN Pain, Moderate (4-6) Ondansetron HCl 4 mg 09/15/20 23:21 Ondansetron 4 Mg/2 Ml Inj IV Q8H PRN Nausea And Vomiting Sodium Chloride 10 ml 09/16/20 10:00 09/16/20 22:51 Sodium Chloride 0.9% 10 Ml Flush Syringe IV 10 ml BID ABHILASH Administration Sodium Chloride 10 ml 09/15/20 23:21 Sodium Chloride 0.9% 10 Ml Flush Syringe IV PRN PRN LINE FLUSH Nutrition/Malnutrition Assess - Dietary Evaluation Nutrition/Malnutrition Findings: Nutrition Notes Start: 09/16/20 13:26 Freq: Status: Active Protocol: Document 09/16/20 13:26 CW (Rec: 09/16/20 13:52 CW [id number]) Nutrition Notes 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 Pt states lack of appetite d/t illness onset for the past 5-7 days. PO intake is neglible at this time but pt denied ONS and denied having any food preferences. Percent of energy/protein needs met: 0%/0% Burn Absent Trauma Absent GI Symptoms None Food Allergy No Current % PO Negligible Minimum of two criteria No Energy Intake (severe) < or equal to 50% Estimated Energy Requirement > or equal to 5 days Interpretation of Weight Loss (non- 10% in 6 months severe) #1 Nutrition Diagnosis Inadequate oral intake Etiology acute illness As Evidenced by Signs and Symptoms pt reports loss of appetite and poor PO intake x5 - 7 days . Is patient on ventilator? No Is Patient Ambulatory and/or Out of Bed Yes REE-([facility]-ambulatory/OOB) [ 2453.594 [id number]] Kcal/Kg value to use for calculation 15 Approximate Energy Requirements Using 1965 kcal/Kg Calculation Used for Recommendations [facility] Additional Notes protein needs: 71 - 89g (0.8 - 1g/kg AdjBW: 89.36) Fluid needs: 1 ml/kcal or per MD order Nutrition Intervention Change Diet Order: Continue Cardiac Diet Goal #1 PO intake that meets at least 75% of kcal and protein needs Anticipated Discharge Needs: Cardiac Diet Follow-Up By: 09/18/20 Additional Comments F/U for PO intakes
[2020-09-18] MEDS: HEPARIN 5,000 UNIT/1 ML VIAL SUB-Q SCH ×2 (05:19→08:32)
[2020-09-18 05:33] LABS: Basophils # (Auto) 0.1 K/mm3 (0.0-0.1); Basophils % (Auto) 0.7 % (0.0-1.8); Eosinophils # (Auto) 0.3 K/mm3 (0.0-0.4); Eosinophils % (Auto) 3.4 % (0.0-4.3); Hemoglobin 8.8 gm/dl (10.1-14.3); Lymphocytes # (Auto) 1.9 K/mm3 (1.2-5.4); Mean Corpuscular HGB Conc 33 % (30-34); Mean Corpuscular Volume 75 fl (79-97); Monocytes # (Auto) 1.1 K/mm3 (0.0-0.8); Monocytes % (Auto) 13.9 % (0.0-7.3); Platelet Count 427 K/mm3 (140-440); Red Blood Count 3.61 M/mm3 (3.65-5.03); Red Cell Distribution Width 18.9 % (13.2-15.2)
[2020-09-18 05:52] LABS: Alanine Aminotransferase 8 units/L (7-56); Albumin 2.7 g/dL (3.9-5); BUN/Creatinine Ratio 10; Blood Urea Nitrogen 9 mg/dL (7-17); Calcium 8.4 mg/dL (8.4-10.2); Hemolysis Index 0
--- NOTE | 2020-09-18 08:00 | Discharge Summary ---
Providers - Providers Date of Admission: 09/15/20 22:47 Date of discharge: 09/18/20 Attending physician: MORRIS BETANCOURT Primary care physician: COMPARISON SHOPPER Hospitalization Condition: Serious Hospital course: 44-year-old -[place] female with significant past medical history of hypertension , asthma and kidney stones presenting to the emergency room today complaining of inability to urinate over the past few hours. Patient has denied any fever or chills, no chest pain or shortness of breath, no nausea vomiting, no hematuria or dysuria. Patient follows up with the urologist in [place]-Dr. Angelita Willard. Upon arrival in the emergency room today she had a low-grade fever. WBC ~20. Work-up reveals UTI and CT of the abdomen and pelvis reveals pyelonephritis. Patient has been commenced on empiric IV antibiotics. Hospital course 3. On IV antibiotics for pyelonephritis with sepsis. Denies any pain in the abdomen or the back. Complains of not been able to urinate. Vitals remained stable overnight. T-max 100 Fahrenheit. Renal function dropped today- creatinine 1.2 ---> 1.5. Continue IV hydration 09/17. Afebrile overnight. On IV ceftriaxone for pyelonephritis. Blood culture remain negative. Urine culture growing gram-negative rods. Alejandra draining clear urine. Remove Alejandra today. Possible discharge in a.m. if remains afeb rile. Renal function back to baseline. 09/18. WBC down to 7.7. Cr 0.9. Feels great. Afebrile for more than 48 hours. She will be discharged home on antibiotics to complete in 1 week. She agrees with kaushal cordero. Disposition: - TO HOME OR SELFCARE Time spent for discharge: 40 mins - Discharge Diagnoses (1) Pyelonephritis Status: Acute (2) Sepsis Status: Acute Qualifiers: Sepsis type: sepsis due to unspecified organism Sepsis acute organ dysfunction status: unspecified Qualified Code(s): A41.9 - Sepsis, unspecified organism (3) UTI (urinary tract infection) Status: Acute Qualifiers: Urinary tract infection type: acute cystitis Hematuria presence: without hematuria Qualified Code(s): N30.00 - Acute cystitis without hematuria Core Measure Documentation - Palliative Care Palliative Care/ Comfort Measures: Not Applicable - Core Measures Any of the following diagnoses?: none Exam - Physical Exam Narrative exam: VITAL SIGNS: Reviewed. GENERAL: Awake HEAD: No signs of head trauma. EYES: Pupils are equal. Extraocular motions intact. MOUTH: Oropharynx is normal. NECK: No adenopathy, no JVD. CHEST: Chest with diminished breath sounds bilaterally. No wheezes, rales, or rhonchi. CARDIAC: normal S1 and S2, without murmurs, gallops, or rubs. ABDOMEN: Soft, non tender and non distended. No rebound or guarding, and no masses palpated. Bowel Sounds normal. MUSCULOSKELETAL: No edema NEUROLOGIC EXAM: Alert and oriented x3. No focal neurologic deficits SKIN: No obvious lesions - Constitutional Vitals: Temp Pulse Resp BP Pulse Ox 97.2 F L 74 16 129/84 93 09/18/20 04:56 09/18/20 05:58 09/18/20 04:56 09/18/20 04:56 09/18/20 04:56 Plan Additional Instructions: Continue antibiotics in 7 days. Follow up with PCP in 1-2 weeks Follow up with: PRIMARY MD DARLINE [Primary Care Provider] - 3-5 Days Prescriptions: Cefdinir 300 mg PO BID #14 capsule
[2020-09-18] MEDS ORDERED: POTASSIUM CHLORIDE ER 20 MEQ TAB PO SCH (08:30)
[2020-09-18 08:45] VITALS: BP 120/77
[2020-09-18] MEDS: cefTRIAXone/NS 1 GM/50 ML 1 GM/50 ML BAG IV SCH (09:53)
== END 2020-09-18 13:12 | disposition home or self-care (01) | DRG 871 ==
LOC: ED 20:00 → 4A 22:47
PROVIDERS: ADMIT Internal Medicine Geriatric Medicine; ATTEND Internal Medicine
PROC: 02HV33Z Insertion of Infusion Device into Superior Vena Cava, Percutaneous Approach (ICD-10-PCS; principal; 2020-09-15)
DX: A41.9 Sepsis, unspecified organism (principal); N17.0 Acute kidney failure with tubular necrosis; N12 Tubulo-interstitial nephritis, not specified as acute or chronic; N30.00 Acute cystitis without hematuria; N10 Acute pyelonephritis; I10 Essential (primary) hypertension; J45.909 Unspecified asthma, uncomplicated; E66.01 Morbid (severe) obesity due to excess calories; Z88.2 Allergy status to sulfonamides; Z79.899 Other long term (current) drug therapy; Z79.891 Long term (current) use of opiate analgesic; Z79.01 Long term (current) use of anticoagulants
CPT/HCPCS: 36415; 74176; 80048; 80053; 81001; 82140; 84703; 85007; 85025; 85610; 87040; 87076; 87086; 87186; 96365; 96375; 96376; G0378; J0696; J1644; J1956; J7030